=== PATIENT | male | born 1990 | race Caucasian/White ===

== ENCOUNTER 2022-11-03 08:57 | Emergency (ER) | payer OTHER, SELFPAY ==
[2022-11-03 09:43] VITALS: BP 137/82; PULSE 72; RESP 18; TEMP 36.4; O2SAT 98
--- NOTE | 2022-11-03 10:00 | ED.URI ---
HPI - URI/Sore Throat General Chief Complaint: Upper Respiratory Infection Stated Complaint: cough,congestion Time Seen by Provider: 11/03/22 09:40 Source: patient and RN notes reviewed Mode of arrival: ambulatory Limitations: no limitations History of Present Illness HPI Narrative: 32-year-old male presented for complaint of sore throat, mild nasal congestion and cough over the past 4 days. He has been taking Mucinex and Zyrtec for symptoms. He also took 1 dose of an antibiotic. He denies associated shortness of breath, wheezing, nausea, vomiting, diarrhea, fevers or chills. Endorses sick contacts about a week ago. Also states and son have similar symptoms. MD elicited complaint: cough Related Data Allergies Allergy/AdvReac Type Severity Reaction Status Date / Time No Known Allergies Allergy Verified 11/03/22 10:06 Review of Systems Review of Systems: ROS per HPI FOR[facility] Past Medical History Medical History (Updated 11/03/22 @ 10:40 by Bernadette Tom, PROCUREMENT SPECIALIST) No pertinent past medical history Exam Narrative: GENERAL: well-appearing, nontoxic no acute distress. HEAD: Normocephalic EYES: PERRLA, conjunctivae clear ENT: Mucous membranes moist. TM pearly valentine with dull light reflex bilaterally; no tragal tenderness. Oropharynx erythematous without lesions or exudate, no tonsillar swelling. no drooling, no hoarseness, no trismus, uvula midline. No tripod positioning, muffled voice, soft palate or pharyngeal wall bulging NECK: Supple. No lymphadenopathy CHEST: Clear to auscultation, breath sounds equal. No wheezing, rhonchi, rales, or stridor. No respiratory distress, speaks in full sentences. HEART: Regular rate and rhythm. No murmur heard. SKIN: Warm, dry, no rash. NEURO: Alert and oriented x3. PSYCH: Normal mood and affect Course Course Emergency Course: Patient is aware of diagnosis, understands and agrees to treatment plan. Anticipatory guidance given. Patient agrees to follow-up as directed and is aware of reasons to seek care at the emergency department. Portions of this record may have been created with voice recognition software Level of Care: Express Care Visit Vital Signs Vital signs: Vital Signs Temperature 97.5 F L 11/03/22 09:43 Pulse Rate 72 11/03/22 09:43 Respiratory Rate 18 11/03/22 09:43 Blood Pressure 137/82 11/03/22 09:43 Pulse Oximetry 98 11/03/22 09:43 Temperature 97.5 F L 11/03/22 09:43 Pulse Rate 72 11/03/22 09:43 Respiratory Rate 18 11/03/22 09:43 Blood Pressure 137/82 11/03/22 09:43 Pulse Oximetry 98 11/03/22 09:43 reviewed MDM - URI/Sore Throat MDM Narrative Medical decision making narrative: ABX prescribed based on known exposure to who tested pos for strep today. Will start if sx worsen. Advised supportive measures and signs/symptoms to go to the ER. Pt is appropriate for outpt treatment and f/u. Differential Diagnosis Differential diagnosis: Likely upper respiratory infection, sinusitis, viral infection and pharyngitis Discharge Plan Discharge Clinical Impression: Upper respiratory infection Patient Disposition: Home, Self-Care Condition: Stable Instructions: Antibiotic Form, Upper Respiratory Infection (ED) Additional Instructions: Recommend Flonase spray and Zyrtec (or Claritin/Abbie) over the counter Cough syrup may cause drowsiness; avoid driving or take it at night time. Tylenol 1000mg every 8 hours as needed for pain Symptomatic treatment includes: rest, fluids, and increase humidity of the air at home. Follow up with your primary care provider in 1 week. Go to the ER for worsening symptoms or concerns. Prescriptions: New azithromycin [Zithromax Z-Phill] 250 mg tablet See Rx Instructions .ROUTE .COMPLEX Qty: 6 0RF Rx Instructions: For 250 mg dose pack: take 500 mg today (day 1), then 250 mg for 4 days (days 2-5) Follow-up/Referrals: PHYSICIAN,[facility] [Primary Care Provider] -
== END 2022-11-03 10:25 | disposition home or self-care (01) ==
PROVIDERS: Emergency Provider Nurse Practitioner Family
DX: J06.9 Acute upper respiratory infection, unspecified (principal)
CPT/HCPCS: 99203; G0463